=== PATIENT | male | born 1930 | race Caucasian/White ===

== ENCOUNTER 2017-04-09 21:26 | Emergency (ER) | payer MEDICARE, OTHER ==
--- NOTE | ~2017-04-09 | CR133 ---
[facility] A Service of [facility] RADIOLOGY TEXT RESULTS PATIENT: HUBERT SALAS LOCATION: SED : [birth year] UNIT #: [id number] AGE: [address]: Jeffrey Santos MD SEX: M ORDER DR: [id number] [place] [id number] E MR#: [id number] Acc #: [id number] NAME: HUBERT SALAS : 1930 SEX: M STUDY DATE/TIME: 04/09/2017 21:50 UNIT: SED ROOM: STUDY DESCRIPTION: CR Forearm 2 View Rt Attending Physician: Jeffrey Santos M.D. Ordering Physician: Jeffrey Santos M.D. Primary Care Physician: Marcio Reynolds M.D. MEDICAL IMAGING REPORT This report is preliminary unless electronic signature is present. EXAM Right forearm 2 views HISTORY Arm pain and swelling after fall today. FINDINGS Two views of the right forearm demonstrate satisfactory bone alignment. No fracture. No abnormal sclerosis. Mild arterial calcifications. Moderate degenerative changes at the first CMC joint. IMPRESSION 1. No acute findings. 2. No fracture. 3. Mild arterial calcifications. Dictated by... Braeden Pacheco M.D. THIS IS AN ELECTRONICALLY VERIFIED REPORT Braeden Pacheco M.D. at 04/10/2017 2:48 PM LIA/mukund TD: 04/10/2017 12:40 JOB #: [id number] MEDICAL IMAGING REPORT Page 1 of 1
[~2017-04-09 21:26] MED LIST: ANTIVERT PO; ASPIRIN PO; BACTRIM DS TABL1 TA1 DOB; BAYER ASPIRIN325 M1 PO; CARDURA PO; CARDURA8 MG PO; CATAFLAM50 MG PO; DICLOFENAC PO; EXELON1 EACH TD; EXELON1 PATCH .2 TD; KEPPRA500 M2 PO; KEPPRA750 MG PO; LEVAQUIN PO; LEVSIN PO; LEVSIN0.125 M1; LEVSIN0.125 M1 PO; LEVSIN0.125 M2 SL; METOPROLOL SUCC50 MG PO; NABUMETONE PO; NABUMETONE500 MG PO; NAMENDA10 MG PO; PRAVACHOL PO; PRAVASTATIN SOD40 MG PO; PRILOSEC PO; PRILOSEC40 MG PO; PROMETHAZINE D118 ML; RELAFEN500 M1 PO; TOPROL XL PO; TOPROL XL50 MG PO; TYLENOL #3 PO; VITAMIN B12-FO1 EACH PO; VITAMIN B125000 MCG PO; VITAMIN D1000 UNI1 PO; VITAMIN D3400 UNI2 PO
[2017-04-09] MEDS ORDERED: DOXAZOSIN MESYLA1 MG (21:37)
[2017-04-09] MEDS ORDERED: MELATONIN1 MG (21:37)
[2017-04-09] MEDS ORDERED: KEPPRA500 M2 (21:37)
== END 2017-04-09 22:53 | disposition home or self-care (01) ==
LOC: SED 21:26
DX: S50.11XA Contusion of right forearm, initial encounter (principal); F03.90 Unspecified dementia, unspecified severity, without behavioral disturbance, psychotic disturbance, mood disturbance, and anxiety; Z88.0 Allergy status to penicillin; Z88.1 Allergy status to other antibiotic agents; Z88.2 Allergy status to sulfonamides; W18.30XA Fall on same level, unspecified, initial encounter
CPT/HCPCS: 73090; 99283

== ENCOUNTER 2017-05-14 21:35 | Emergency (ER) | payer MEDICARE, OTHER ==
[~2017-05-14] VITALS: Ht 167.6 cm; Wt 77.1 kg
--- NOTE | ~2017-05-14 | CT71 ---
[facility]. [facility] A Service of [facility] RADIOLOGY TEXT RESULTS PATIENT: HUBERT SALAS LOCATION: SED : [birth year] UNIT #: [id number] AGE: [address]: Ramone Ardon MD SEX: M ORDER DR: [id number] [address] [address] [id number] E MR#: [id number] Acc #: [id number] NAME: HUBERT SALAS : 1930 SEX: M STUDY DATE/TIME: 05/14/2017 22:24 UNIT: SED ROOM: STUDY DESCRIPTION: CT Head Wo Contrast Attending Physician: Ramone Ardon M.D. Ordering Physician: Ramone Ardon M.D. Primary Care Physician: Marcio Reynolds M.D. MEDICAL IMAGING REPORT This report is preliminary unless electronic signature is present. EXAM Noncontrast CT head. Date 05/14/2017 HISTORY Fell, hit head posteriorly. Alzheimer's disease. COMPARISON Noncontrast CT head 05/03/2015. This CT exam was performed with one or more of the following radiation dose reduction techniques: automatic exposure control, adjustment of mA and/or kV according to patient size, and iterative reconstruction. FINDINGS No acute intracranial hemorrhage, mass lesion, mass effect or midline shift is seen. There is moderate generalized parenchymal atrophy. Chronic encephalomalacia within the right occipital lobe and scattered chronic microvascular disease changes elsewhere throughout the deep white matter. Ventricular configuration is normal. No evidence of acute or evolving infarct. Mild paranasal sinus disease. Chronic-appearing deformity of the nasal bones. No acute calvarial fracture is identified. Advanced degenerative change at the C1-C2 junction as can be seen in rheumatoid arthritis. Impression 1. No acute findings. 2. Chronic-appearing encephalomalacic change within the right occipital lobe. 3. Chronic microvascular disease changes and parenchymal atrophy. 4. Degenerative changes at the C1-C2 junction as can be seen in STS. [facility] A Service [facility] RADIOLOGY TEXT RESULTS PATIENT: HUBERT SALAS LOCATION: SED : [birth year] UNIT #: [id number] AGE: [address]: Ramone Ardon MD SEX: M ORDER DR: rheumatoid arthritis. Dictated by... Staci Easton M.D. THIS IS AN ELECTRONICALLY VERIFIED REPORT Staci Easton M.D. at 05/17/2017 8:39 AM VISHNU/mukund TD: 05/15/2017 20:55 JOB #: [id number] MEDICAL IMAGING REPORT Page 1 of 1
[~2017-05-14 21:35] MED LIST changes: +DOXAZOSIN MESYLA1 MG; +KEPPRA500 M2; +MELATONIN1 MG
== END 2017-05-14 23:31 | disposition home or self-care (01) ==
LOC: SED 21:35
DX: S09.90XA Unspecified injury of head, initial encounter (principal); F03.90 Unspecified dementia, unspecified severity, without behavioral disturbance, psychotic disturbance, mood disturbance, and anxiety; R56.9 Unspecified convulsions; I10 Essential (primary) hypertension; Z86.73 Personal history of transient ischemic attack (TIA), and cerebral infarction without residual deficits; W01.0XXA Fall on same level from slipping, tripping and stumbling without subsequent striking against object, initial encounter; Y92.009 Unspecified place in unspecified non-institutional (private) residence as the place of occurrence of the external cause
CPT/HCPCS: 70450; 99284

== ENCOUNTER 2017-05-26 08:39 | Emergency (ER) | payer MEDICARE, OTHER ==
--- NOTE | ~2017-05-26 | CR172 ---
[facility] A Service of [facility] RADIOLOGY TEXT RESULTS PATIENT: HUBERT SALAS LOCATION: SED : [birth year] UNIT #: [id number] AGE: [address]: Julio César Stanley MD SEX: M ORDER DR: [id number] [place] [id number] E MR#: [id number] Acc #: [id number] NAME: HUBERT SALAS : 1930 SEX: M STUDY DATE/TIME: 05/26/2017 0906 UNIT: SED ROOM: STUDY DESCRIPTION: CR Knee 3 Views Lt Attending Physician: Julio César Stanley M.D. Ordering Physician: Julio César Stanley M.D. Primary Care Physician: Marcio Reynolds M.D. MEDICAL IMAGING REPORT This report is preliminary unless electronic signature is present. EXAM Left knee, 05/26/2017, 0906 hours. CLINICAL HISTORY Patient fell this morning with complaint of knee pain. History of knee surgery several years ago. COMPARISON 05/03/2015 FINDINGS AP, cross-table lateral, and sunrise views are performed. There is no knee joint effusion or fracture. No hardware failure. Lucency at the interface between the tibial component of the knee replacement and the medial tibial plateau is unchanged. There is a cystic lucent appearing area in the distal femoral metaphysis, also unchanged. IMPRESSION Postop total knee replacement with no evidence of acute fracture, joint effusion, or hardware failure. Dictated by... Rachel Ann M.D. THIS IS AN ELECTRONICALLY VERIFIED REPORT Rachel Ann M.D. at 05/26/2017 2:31 PM CASSYM/travis TD: 05/26/2017 11:56 JOB #: [id number] [facility] A Service [facility] RADIOLOGY TEXT RESULTS PATIENT: HUBERT SALAS LOCATION: SED : [birth year] UNIT #: [id number] AGE: [address]: Julio César Stanley MD SEX: M ORDER DR: MEDICAL IMAGING REPORT Page 1 of 1
== END 2017-05-26 10:36 | disposition home or self-care (01) ==
LOC: SED 08:39
DX: S80.02XA Contusion of left knee, initial encounter (principal); I11.9 Hypertensive heart disease without heart failure; F03.90 Unspecified dementia, unspecified severity, without behavioral disturbance, psychotic disturbance, mood disturbance, and anxiety; Z95.0 Presence of cardiac pacemaker; Z79.82 Long term (current) use of aspirin; Z79.899 Other long term (current) drug therapy; Z88.0 Allergy status to penicillin; Z88.1 Allergy status to other antibiotic agents; Z88.2 Allergy status to sulfonamides; W18.30XA Fall on same level, unspecified, initial encounter; Y92.129 Unspecified place in nursing home as the place of occurrence of the external cause
CPT/HCPCS: 73562; 99283